=== PATIENT | male | born 2000 ===

== ENCOUNTER 2022-03-13 20:02 | Emergency (ER) | payer SELFPAY ==
[2022-03-13] MEDS ORDERED: diphenhydrAMINE 50 MG/ML SDV IVPUSH ONE (20:11)
[2022-03-13] MEDS ORDERED: Sodium Chloride 0.9% 1,000 ML IV ONE (20:11)
[2022-03-13] MEDS ORDERED: methylPREDNISolone Sodium Succinate 125 MG/2 ML SDV IVPUSH ONE (20:11)
[2022-03-13] MEDS ORDERED: predniSONE 5 MG Tab ONE (21:00)
== END 2022-03-13 21:15 | disposition home or self-care (01) ==
LOC: LB.ED 20:02
DX: T78.2XXA Anaphylactic shock, unspecified, initial encounter (principal)
CPT/HCPCS: 96361; 96374; 96375; 99283; 99284-25; A0425; A0429; J1200; J2930; J7030; J7512